=== PATIENT | male | born 1970 | race African-American/Black ===

== ENCOUNTER 2016-04-19 06:24 | Day surgery (SDC) | payer MEDICARE, OTHER ==
[2016-04-19] MEDS ORDERED: FENTANYL CITRATE INJ/PF 100 MCG/2 ML AMPUL ONE (07:12)
[2016-04-19] MEDS ORDERED: DEXAMETHASONE SOD PHOSPHATE INJ 4 MG/1 ML VIAL ONE (07:12)
[2016-04-19] MEDS ORDERED: MIDAZOLAM 2 MG/2 ML INJ ONE (07:12)
[2016-04-19] MEDS ORDERED: ONDANSETRON HCL INJ/PF 4 MG/2 ML SDV ONE (07:13)
[2016-04-19] MEDS ORDERED: PROPOFOL INJ 200 MG/20 ML VIAL IV ONE (07:13)
[2016-04-19] MEDS ORDERED: HYDROMORPHONE HCL INJ/PF 2 MG/ML AMPULE ONE (07:13)
[2016-04-19] MEDS ORDERED: SUCCINYLCHOLINE CHLORIDE INJ 200 MG/10 ML VIAL ONE (07:13)
[2016-04-19] MEDS ORDERED: NEOSTIGMINE METHYLSULFATE 10 MG/10 ML VIAL ONE (07:14)
[2016-04-19] MEDS ORDERED: GLYCOPYRROLATE INJ 0.4 MG/2 ML VIAL ONE (07:15)
[2016-04-19] MEDS ORDERED: LIDOCAINE 1%/EPINEPHRINE INJ 20 ML VIAL ONE (07:17)
[2016-04-19] MEDS ORDERED: OXYMETAZOLINE HCL 0.05% NASAL SPRAY 15 ML BOTTLE ONE (07:22)
[2016-04-19] MEDS: OXYMETAZOLINE HCL 0.05% NASAL SPRAY 15 ML BOTTLE ONE ×2 (07:24→07:56)
[2016-04-19] MEDS ORDERED: WATER FOR INJECTION,STERILE 10 ML SDV ONE (09:00)
[2016-04-19] MEDS ORDERED: DEXAMETHASONE SOD PHOS INJ 10 MG/1 ML VIAL ONE (09:00)
--- NOTE | 2016-04-19 10:43 | OPERATIVE REPORT E ---
Operative Report NAME: TAY WEAVER : 1970 AGE: 46Y DATE OF SURGERY: 04/19/2016 ROOM: PREOPERATIVE DIAGNOSES: 1. NASAL POLYPOSIS. 2. CHRONIC SINUSITIS. POSTOPERATIVE DIAGNOSES: 1. NASAL POLYPOSIS. 2. CHRONIC SINUSITIS. OPERATION: 1. Left endoscopic maxillary debridement. 2. Left endoscopic sphenoidotomy. 3. Left endoscopic anterior and posterior ethmoidectomy. 4. Left endoscopic frontonasal duct exploration with stent. SURGEON: ELAINE RAMIREZ M.D. HOGSHEAD BUILDER: None. ANESTHESIA: General, Shruthi Don MD. Jewel Burdick CRNA. PRIMARY CARE PHYSICIAN: Colby Gonzales MD PREOPERATIVE NOTE: This is a 46-year-old man originally from [facility] who comes in because of headache, facial pain, postnasal drip, nasal congestion, rhinorrhea, fever. He was seen at [facility] on 03/02/[address] Guero Rasmussen. The patient is status post right endoscopic sinus surgery done at [facility] on [place], [place] and a CT scan was ordered by Dr. Rasmussen and the patient was seen in followup on 03/24/2016 for review of that scan. The scan basically showed that the right hand side was essentially clear, but the left hand side was largely opacified in what appeared to be a pansinusitis. He was started on oral steroids and scheduled for a left-sided endoscopic sinus procedure. He now comes in to have that done. While awaiting surgery, a [employer] Smell Test battery was done and he scored 24/40. PROCEDURE: The patient was seen and identified in the preoperative holding area. The left nostril was marked for laterality. The patient was then taken back to the operating room, placed in supine position, general anesthesia was induced and an oral endotracheal tube was placed and the patient was appropriately positioned. He had been given 2 doses of oxymetazoline hydrochloride intranasally in the preoperative holding area. He was given 2 more, shortly after the induction of anesthesia. A short time-out was then taken and all questions relating to the patient's identity, his positioning on the operating table, the procedures to be performed and the risks attendant thereto were discussed and there were no matters arising. The patient was then appropriately positioned and draped with the head turned slightly to the patient's right-hand side. The Fusion equipment was then brought into the field and the registration pad was applied to the patient's forehead. The standard registration of the CT scan information was then completed without difficulty. Two Neuro Patties soaked in oxymetazoline hydrochloride were then placed in the patient's left nostril for some 5 minutes while instrumentation was being connected. A left nasal endoscopy was then done using the 0-degree scope and this was taken back into the nasopharynx. Palpation of the underside of the sphenoid was done using a Juanito elevator. The blunt end of this instrument was then brought up onto the anterior face of the sphenoid. Palpation of the anterior face was done, until the sphenoid sinus ostium was found and the Juanito elevator was inserted. This instrument was used to widen the ostium somewhat. Next, a Dolan Sella Punch was inserted and a couple of bites were taken in an inferior direction in order to widen the ostium. Next, the straight shaver was registered with the Fusion equipment and this was inserted and the opening was widened yet further. Some bleeding did occur and therefore, an Afrin-soaked Neuropatty was placed in this area. Next, endoscopy was done further forwards and there was a large antrotomy that had already been surgically created, probably at the previous procedure in [facility]. The interior of the left maxilla revealed a fair amount of thick mucoid discharge and this was removed using a curved suction under endoscopic guidance. The mucosa of the left maxilla was carpeted with sessile polypoid material. There did not appear to be any further surgery that would be required for the maxilla, short of perhaps creating a 'conventional' antrostomy in the inferior meatus, for better lavage, but this was not done. Next, a return was made to the sphenoid and that opening appeared to be satisfactory at this point. Next, a step-carlos anterior and posterior ethmoidectomy was performed with the shaver, taking care not to perforate the lamina papyracea. All this material was collected in a sieve and was sent down to Pathology for pathologic examination. The dissection appeared to be satisfactory up to the fovea ethmoidalis. The dissection posteriorly was carried through into the sphenoid and much of the sphenoid interior was also removed this way. The debrider was then taken forwards into the frontoethmoidal recess. Next, the frontal Seeker was connected to the Fusion equipment and this was taken up into the frontal sinus. The frontonasal duct appeared to be widely patent. Visualization of the area was done with a 30-degree scope and the duct did appear to be widely open and there did not appear to be material in it. A curved suction was then attached to the Fusion equipment and this likewise was carried up through the frontonasal duct into the frontal sinus without difficulty. Therefore, no further instrumentation was done to the frontonasal duct. A sheet of Gelfilm was then taken and dipped in saline and this was tightly rolled using bayonet forceps. One end of this was then grasped with straight Blakesley-Van forceps and this was utilized to place a Gelfilm stent in the frontonasal duct. This was surprisingly easy to do. A check of the ethmoid dissection was then done using straight Blakesley-Van forceps and there did not appear to be any more tissue that needed to be removed. Much more than this and it would have risked perforation of the bony margins of the dissection. Accordingly, the area was carefully suctioned, and Sinu-Foam was inserted, (made with 10 mg of Decadron and 6 mL of sterile water) beginning in the sphenoid sinus and coming forward along the ethmoid dissection and up into the frontoethmoidal recess. Bleeding was not troublesome. It appeared that the left middle turbinate had already been previously medialized and there did not appear to be any kind of threat to the middle meatus. This structure was therefore not further instrumented. The procedure was then terminated at this point. The patient was then awakened and extubated, light, and transferred to PACU in good condition, having tolerated the procedure well. Estimated blood loss was on the order of 20 mL. There were no complications or untoward events. DICTATING PHYSICIAN: ELAINE RAMIREZ M.D. [id number] PHY#: [id number] ID: [id number] JOB#: [id number] ACCT: [id number] cc:ELAINE RAMIREZ M.D. > [facility]
== END 2016-04-19 10:50 | disposition home or self-care (01) ==
LOC: SC 06:24
PROVIDERS: ATTEND Otolaryngology
PROC: 09BR4ZZ Excision of Left Maxillary Sinus, Percutaneous Endoscopic Approach (ICD-10-PCS; 2016-04-19)
PROC: 09JY4ZZ Inspection of Sinus, Percutaneous Endoscopic Approach (ICD-10-PCS; 2016-04-19)
PROC: 09TV4ZZ Resection of Left Ethmoid Sinus, Percutaneous Endoscopic Approach (ICD-10-PCS; principal; 2016-04-19 07:30)
PROC: 09CX4ZZ Extirpation of Matter from Left Sphenoid Sinus, Percutaneous Endoscopic Approach (ICD-10-PCS; 2016-04-19 07:30)
DX: J32.9 Chronic sinusitis, unspecified (principal); J33.9 Nasal polyp, unspecified; J30.9 Allergic rhinitis, unspecified; R43.8 Other disturbances of smell and taste; Z88.0 Allergy status to penicillin; Z79.899 Other long term (current) drug therapy
CPT/HCPCS: 88305 ×2; 31255; 31287; 31237; 30999; C1751; J2250; J1100 ×2; J3010; J3490 ×3; J1170; J0330; J2405; J2704; 160

== ENCOUNTER 2017-10-11 09:03 | Emergency (ER) | payer MEDICARE ==
[2017-10-11] MEDS ORDERED: DEXAMETHASONE SOD PHOSPHATE INJ 4 MG/1 ML VIAL IM ONE (09:38)
[2017-10-11] MEDS ORDERED: ACETAMINOPHEN 325 MG TABLET PO ONE (09:38)
--- NOTE | 2017-10-11 10:02 | ER Document Report ---
HPI - HPI Patient complains to provider of: sore throat Onset: Yesterday Onset/Duration: Sudden Severity: Severe Pain Level: 5 Context: Patient presents to emergency department with complaints of sore throat that started yesterday. Reports fever of 100 yesterday. Has not taken anything for pain or fever today. Denies exposure to strep throat. Denies vomiting diarrhea. Patient speaking in a whisper but reports he can swallow although it hurts. Denies vomiting diarrhea denies rash. Associated Symptoms: Fever Exacerbated by: Denies Relieved by: Denies Similar symptoms previously: No Recently seen / treated by doctor: No - EENT EENT: REPORTS: Sore Throat Past Medical History - General Information source: Patient - Social History Smoking Status: Never Smoker Cigarette use (# per day): No Frequency of alcohol use: None Drug Abuse: None Occupation: [employer] Lives with: Family Family History: None Patient has suicidal ideation: No Patient has homicidal ideation: No - Medical History Medical History: Negative - Past Medical History Cardiac Medical History: Denies: Hx Heart Attack, Hx Hypertension Pulmonary Medical History: Denies: Hx Asthma Neurological Medical History: Denies: Hx Cerebrovascular Accident, Hx Seizures Renal/ Medical History: Denies: Hx Peritoneal Dialysis GI Medical History: Denies: Hx Hepatitis, Hx Hiatal Hernia, Hx Ulcer Infectious Medical History: Denies: Hx Hepatitis Surgical Hx: Negative Past Surgical History: Denies: Hx Open Heart Surgery, Hx Pacemaker Vertical Provider Document - CONSTITUTIONAL Agree With Documented VS: Yes Exam Limitations: No Limitations General Appearance: WD/WN, No Apparent Distress - INFECTION CONTROL TRAVEL OUTSIDE OF THE [place] IN LAST 30 DAYS: No - HEENT HEENT: Atraumatic, Normocephalic, Pharyngeal Exudate, Pharyngeal Erythema - Opens mouth wide, no trismus, no abscess noted. negative: Tympanic Membrane Red , Tympanic Membrane Bulging - NECK Neck: Normal Inspection, Supple. negative: Lymphadenopathy-Left, Lymphadenopathy-Right - RESPIRATORY Respiratory: Breath Sounds Normal, No Respiratory Distress - CARDIOVASCULAR Cardiovascular: Regular Rate - MUSCULOSKELETAL/EXTREMETIES Musculoskeletal/Extremeties: MAEW, FROM - NEURO Level of Consciousness: Awake, Alert, Appropriate Motor/Sensory: No Motor Deficit - DERM Integumentary: Warm, Dry, No Rash Course - Re-evaluation Re-evalutation: 10/11/17 10:18 Patient provided with Tylenol p.o. fluids steroid injection. 10/11/17 10:30 drinking po fluids without problem, talking normal now. Patient reports that penicillin makes him vomit. He reports only when he takes the p.o. meds. Will treat him with an injection of IM penicillin with Zofran. 10/11/17 10:41 Positive strep throat. Patient instructed on results. Instructed on plan of care, instructed to return if he has any trouble swallowing. He verbalized understanding to all instructions. - Vital Signs Vital signs: Temp Pulse Resp BP Pulse Ox 99.9 F 86 14 112/77 99 10/11/17 09:11 10/11/17 09:11 10/11/17 09:11 10/11/17 09:11 10/11/17 09:11 Discharge - Discharge Clinical Impression: Sore throat, Tonsillar exudate, Strep sore throat Condition: Stable Disposition: HOME, SELF-CARE Instructions: Clindamycin ([facility]), Fever ([facility]), Use of Pzjg-Dsv-Elvmlob Ibuprofen ([facility]), Penicillins ([facility]), Steroid Medication Injection, Strep Throat ( [facility]) Additional Instructions: *You have been evaluated for a sore throat, tonsillar exudate, strep throat *Monitor your temperature, Take ibuprofen as indicated *Warm salt water gargles and throat lozenges for comfort *Change your toothbrush after two days *Do not let anyone drink/eat after you *Good hand washing *Follow-up with a primary care provider for recheck within one week *Return to ED for worsening condition change, needs, unable to swallow Forms: Return to Work
[2017-10-11] MEDS ORDERED: PENICILLIN G BENZATHINE 1.2 MILLION UNIT/2 ML DISP.SYRIN IM ONE (10:29)
[2017-10-11] MEDS ORDERED: ONDANSETRON 4 MG TAB.RAPDIS PO ONE (10:29)
[2017-10-11 11:04] VITALS: BP 104/68
== END 2017-10-11 11:04 | disposition home or self-care (01) ==
LOC: ER 09:03
DX: J02.0 Streptococcal pharyngitis (principal); R50.9 Fever, unspecified
CPT/HCPCS: 99283; 96372; 87880; A9270 ×2; J1100; J0561; S0119